=== PATIENT | female | born 1960 | race Caucasian/White ===

== ENCOUNTER 2020-11-20 09:18 | Emergency (ER) | payer OTHER ==
[2020-11-20 09:30] VITALS: BMI 21.5
[2020-11-20] MEDS ORDERED: MECLIZINE HCL 12.5 MG TABLET ONE (09:54)
[2020-11-20] MEDS ORDERED: MECLIZINE HCL 12.5 MG TABLET PO ONE (09:54)
[2020-11-20 13:22] VITALS: BP 141/85; PULSE 80; TEMP 98.6
[2020-11-20] MEDS ORDERED: diazePAM 5 MG TABLET PO ONE (14:18)
[2020-11-20] MEDS ORDERED: diazePAM 2 MG TABLET ONE (14:22)
== END 2020-11-20 17:52 | disposition home or self-care (01) ==
LOC: FER 09:18
DX: H81.399 Other peripheral vertigo, unspecified ear (principal)
CPT/HCPCS: 70450-TC; 70551-TC; 99285-25; C9803; U0003

== ENCOUNTER 2024-03-20 12:30 | Emergency (ER) | payer OTHER ==
[2024-03-20 13:08] VITALS: BP 147/79; PULSE 116; RESP 18; TEMP 97.7; BMI 21.9
== END 2024-03-20 13:55 | disposition home or self-care (01) ==
LOC: FER 12:30
DX: R42 Dizziness and giddiness (principal); F41.9 Anxiety disorder, unspecified
CPT/HCPCS: 99282-25